=== PATIENT | male | born 1980 | race Caucasian/White ===

== ENCOUNTER 2023-10-13 13:38 | Emergency (ER) | payer OTHER ==
[~2023-10-13] VITALS: Ht 190.5 cm; Wt 109.0 kg
[2023-10-13] MEDS ORDERED: LIDOcaine HCl 1% (Local Anesth.) 20 ML VIAL STI STA (13:56)
[2023-10-13] MEDS ORDERED: POVIDONE IODINE 0.5 OZ/BTL TOP ONE (14:00)
[2023-10-13] MEDS ORDERED: NEOMYCIN-BACITRACIN-POLYMYXIN 0.5 GM/PAK PAK TOP ONE (14:00)
[2023-10-13] MEDS ORDERED: Diph, Acellular Pertussis, Tet 0.5 ML/VIAL (Tdap) SDV IM ONE (14:00)
[2023-10-13] MEDS ORDERED: BUPIVACAINE HCL PF 0.5 % 50 MG/10 ML SDV STI ONE (14:00)
[2023-10-13] MEDS ORDERED: ceFAZolin 1 GM/VIAL SDV IM ONE (14:40)
[2023-10-13] MEDS ORDERED: STERILE WATER 10 ML/VIAL SDV IM ONE (14:40)
[2023-10-13] MEDS ORDERED: CEPHALEXIN MONOHYDRATE 500 MG/CAP PO ONE (15:40)
[2023-10-13] MEDS ORDERED: KEFLEX500 MG PO (15:40)
[2023-10-13] MEDS ORDERED: PERCOCET 5/321 COMBO PO (15:40)
[2023-10-13 15:59] VITALS: BP 130/62
== END 2023-10-13 16:04 | disposition home or self-care (01) | DRG 605 ==
LOC: ED 13:38
PROC: 0HQNXZZ Repair Left Foot Skin, External Approach (ICD-10-PCS; principal; 2023-10-13)
PROC: 0HDRXZZ Extraction of Toe Nail, External Approach (ICD-10-PCS; 2023-10-13)
DX: S91.212A Laceration without foreign body of left great toe with damage to nail, initial encounter (principal); S92.422A Displaced fracture of distal phalanx of left great toe, initial encounter for closed fracture; W20.8XXA Other cause of strike by thrown, projected or falling object, initial encounter; Y92.89 Other specified places as the place of occurrence of the external cause; Y99.0 Civilian activity done for income or pay